=== PATIENT | female | born 1965 | race Two or more races ===

== ENCOUNTER 2018-07-10 06:40 | Day surgery (SDC) | payer BC ==
[2018-07-09 12:18] VITALS: Ht 167.6 cm; Wt 68.0 kg
[~2018-07-10] VITALS: Ht 167.6 cm; Wt 68.0 kg
[2018-07-10] VITALS (12 sets, daily range): BP systolic 110–121; BP diastolic 58–72; PULSE 80–91; RESP 14–21
[2018-07-10] MEDS ORDERED: ESCI10TA PO (07:14)
[2018-07-10] MEDS ORDERED: CLON0.5T14 PO (07:15)
--- NOTE | 2018-07-10 07:53 | PREOPHP ---
DATE OF ADMISSION: 07/10/2018 HISTORY OF PRESENT ILLNESS: This is a 52-year-old lady, 0. Her last normal menstrual period was 05/2018. She was admitted as outpatient for D and C, hysteroscopy and suction curettage. This patient is known to have fibroid uterus. She also has borderline endometrial thickening. She does not like endometrial biopsy done in the office. She wanted to have it done in the hospital. So, the procedure was explained to her and she understood everything totally. The risks, benefits and alternatives were discussed with her as well. PAST PERSONAL HISTORY: No history of TB, asthma. ALLERGIES: NO ALLERGIES. SOCIAL HISTORY: The patient does not smoke. She does not drink. MEDICATIONS: She does not take any drugs except lexapril. GYNECOLOGIC HISTORY: She had menarche at the age of 12, every 28 days interval, 3 to 4 days duration, and moderate in amount. FAMILY HISTORY: Noncontributory. REVIEW OF SYSTEMS: CARDIOVASCULAR: No chest pains. RESPIRATORY: No cough. GASTROINTESTINAL: No diarrhea, no vomiting. GENITOURINARY: No dysuria. PHYSICAL EXAMINATION: GENERAL: Reveals a conscious, coherent lady and in no acute distress. VITAL SIGNS: Her blood pressure 120/80, pulse rate 80 per minute, respirations 16 per minute. BREASTS, HEART AND LUNGS: Within normal limits. ABDOMEN: Soft. No organomegaly. PELVIC: Revealed the cervix to be closed, uterus of normal size, and adnexa were negative for masses. RECTAL: Confirmed the pelvic findings. EXTREMITIES: No pedal edema. ADMITTING DIAGNOSES: Perimenopause and borderline endometrial thickening. PLAN: The patient was planned to have the above procedure. The patient refused to have it done in the office. She wanted to have this done under general anesthesia as she claims that she has a very tight for any procedures done in the vagina. Dictated By: ASCENCION BOLES/ANGELINE Conf#: [id number] DID#: [id number] MTDD
--- NOTE | 2018-07-10 08:08 | PREAC ---
Date/Time of Note Date/Time of Note DATE: 07/10/18 TIME: 08:07 Anesthesia Eval and Record Evaluation Time Pre-Procedure Interview DATE: 07/10/18 TIME: 08:07 Age 52 Sex female NPO: 8 hrs Preoperative diagnosis ENDOMETRIAL HYPERPLASIA Planned procedure D&C HYSTEROSCOPY Past Medical History Past Medical History: Includes Psych: Anxiety Surgery & Anesthesia Issues No known issue Meds Anticoagulation: No Beta Annette within 24 hr: No Reason Beta Annette not given: Pt. not on B-Annette Reported Medications Clonazepam* (Clonazepam*) 0.5 Mg Tablet, 0.5 MG PO DAILY PRN for ANXIETY, TAB 07/10/18 Escitalopram Oxalate* (Lexapro*) 10 Mg Tablet, 10 MG PO DAILY, #30 TAB 07/10/18 Meds reviewed: Yes Allergies Coded Allergies: No Known Allergy (Unverified , 07/10/18) Allergies Reviewed: Yes Labs/Studies Labs Reviewed: Reviewed by anesthesiologist test: Negative Studies: ECG (NL), CXR (NL) Pre-procedure Exam Last vitals Vital Signs Date Temp Pulse Resp B/P (MAP) Pulse Ox O2 O2 Flow FiO2 Time Delivery Rate 07/10/18 97.9 91 16 110/58 100 Room Air 07:37 (75) Airway: Adequate mouth opening, Adequate thyromental dist Mallampati: Mallampati II Teeth: Normal Lung: Normal Heart: Normal ASA Physical Status ASA physical status: 1 Emergency: None Planned Anesthetic General/MAC: ETT Planned Pain Management Parenteral pain med Pre-operative Attestations Prior to commencing anesthesia and surgery, the patient was re-evaluated, there was verification of: *The patient's identity *The results of appropriate recent lab work and preoperative vital signs *The above evaluation not changing prior to induction *Anesthetic plan, risk benefits, alternative and complications discussed with patient/family; questions answered; patient/family understands, accepts and wishes to proceed. Gianluca Ashley M.D. Jul 10, 2018 08:08
[2018-07-10] MEDS ORDERED: CEFAZOLIN 1 GM INJ ONE (08:11)
[2018-07-10] MEDS ORDERED: MIDAZOLAM 1 MG/ML 2 ML INJ ONE (08:11)
[2018-07-10] MEDS ORDERED: PROPOFOL 20 ML ONE (08:11)
[2018-07-10] MEDS ORDERED: ROCURONIUM 50 MG INJ ONE (08:11)
[2018-07-10] MEDS ORDERED: FENTAnyl 50 MCG/ML VIAL ONE (08:11)
[2018-07-10] MEDS ORDERED: GLYCOPYRROLATE 0.4 MG INJ ONE (08:11)
[2018-07-10] MEDS ORDERED: DEXAMETHASONE 4 MG/ML 5 ML INJ ONE (08:12)
[2018-07-10] MEDS ORDERED: ONDANSETRON 4 MG INJ ONE (08:12)
[2018-07-10] MEDS ORDERED: FENTAnyl 50 MCG/ML VIAL IV PRN ×3 (08:30)
[2018-07-10] MEDS ORDERED: hydrALAzine 20 MG INJ IV PRN (08:30)
[2018-07-10] MEDS ORDERED: DIPHENHYDRAMINE 50 MG INJ IV PRN (08:30)
[2018-07-10] MEDS ORDERED: OXYCODONE/ACETAMINOPHEN (5/325) TAB PO PRN ×2 (08:30)
[2018-07-10] MEDS ORDERED: LABETALOL HCL 20MG INJ IV PRN (08:30)
[2018-07-10] MEDS ORDERED: HYDROmorphONE 1 MG/5 ML IV SYRINGE IV PRN ×3 (08:30)
[2018-07-10] MEDS ORDERED: MEPERIDINE 25 MG INJ IV PRN (08:30)
[2018-07-10] MEDS ORDERED: TRIMETHOBENZAMIDE 100 MG/ML VIAL IM PRN (08:30)
[2018-07-10] MEDS ORDERED: MIDAZOLAM 1 MG/ML 2 ML INJ IV PRN (08:30)
[2018-07-10] MEDS ORDERED: IPRATROPIUM (NEB) 0.5 MG/2.5 ML AMP HHN PRN (08:30)
[2018-07-10] MEDS ORDERED: EPHEDrine SULFATE 50 MG/5 ML SYG IV PRN (08:30)
[2018-07-10] MEDS ORDERED: ONDANSETRON 4 MG INJ IV PRN (08:30)
[2018-07-10] MEDS ORDERED: ALBUTEROL 0.083% (NEB) 2.5 MG/3 ML AMP HHN PRN (08:30)
--- NOTE | 2018-07-10 08:41 | SIPON ---
Date/Time of Note Date/Time of Note DATE: 07/10/18 TIME: 08:40 Operative Report Preoperative Diagnosis ENDOMETRIAL THICKENING FIBROID Postoperative Diagnosis ENDOMETRIAL THICKENING FIBROID R/O ENDOMETRIAL HYPERPLASIA R/O ENDOMETRIAL POLYP Operation/Procedure Performed D&C HYSTEROSCOPY SUCTION CURETTAGE Surgeon see signature line librarian assistant SURGERY SPECIALIST Anesthesia: general Estimated blood loss: minimal Transfusion Required none Specimen ECC EMC SUCTION CURETTAGE Grafts/Implants none Complications none ASCENCION GAGNON MD Jul 10, 2018 08:41
--- NOTE | 2018-07-10 08:46 | PAC ---
Date/Time of Note Date/Time of Note DATE: 07/10/18 TIME: 08:46 Post-Anesthesia Notes Post-Anesthesia Note Last documented vital signs Vital Signs Date Temp Pulse Resp B/P (MAP) Pulse Ox O2 O2 Flow FiO2 Time Delivery Rate 07/10/18 97.9 91 16 110/58 100 Room Air 08:46 (75) Activity: WNL Respiratory function: WNL Cardiovascular function: WNL Mental status: Baseline Pain reasonably controlled: Yes Hydration appropriate: Yes Nausea/Vomiting absent: Yes Gianluca Ashley M.D. Jul 10, 2018 08:46
[2018-07-10] MEDS ORDERED: ACETAMINOPHEN 325 MG TAB PO PRN (09:00)
--- NOTE | 2018-07-14 09:01 | OPR ---
DATE OF OPERATION: 07/10/2018 PREOPERATIVE DIAGNOSIS: Endometrial thickening, rule out endometrial hyperplasia, rule out endometri al polyp. POSTOPERATIVE DIAGNOSES: 1. Endometrial thickening, rule out endometrial hyperplasia, rule out endometrial polyp. 2. Pending pathology report and endometrial polyp on the posterior lower uterine segment. SURGEON: Ascencion Landrum MD. CLINICAL SERVICES DIRECTOR: technology methodology consultant. ANESTHESIA: General. OPERATION PERFORMED: Fractional dilatation and curettage, hysteroscopy and suction curettage. OPERATIVE TECHNIQUE: Under general anesthesia, the patient was prepped and draped in the usual fashi on for vaginal surgery. Pelvic exam under anesthesia revealed the cervix to be firm, uterus of ascencion l size, and adnexa were negative for masses. Then, the heavy weight vaginal retractor was put in dinorah ce and the anterior lip of the cervix was grasped with an Allis clamp. Endocervical dilatation up to Hegar 6 was proceeded. Uterus was sounded to about 3 inches. Then the hysteroscope was inserted in side the uterine cavity and connected with the light source and the uterus was distended with normal saline. There was a 0.5 cm possible polyp on the lower posterior segment of the uterus and the cervi mary ellen curettage was done and a small amount of tissue was obtained. Endometrial curettage was done and good amount of tissue was obtained. Suction tip size 6 was inserted inside the uterine cavity and c onnected with the suction machine. Suction curettage was done and good amount of tissue was obtained . The uterus was intact during and after the procedure. The patient tolerated the procedure well. Estimated blood loss was minimal. Vital signs were stable during and after the procedure. Dictated By: ASCENCION LANDRUM MD NS/NTS Conf#: [id number] DID#: [id number]
== END 2018-07-10 10:03 | disposition home or self-care (01) ==
LOC: SDS 06:40
PROVIDERS: ATTEND Obstetrics & Gynecology
DX: N85.00 Endometrial hyperplasia, unspecified (principal); D25.9 Leiomyoma of uterus, unspecified
CPT/HCPCS: 58558; 84702; 86850; 86900; 86901; 88305; J0690; J1100; J1170; J2250; J2405; J3010; Z7512; Z7610